=== PATIENT | male | born 1940 | race Caucasian/White ===

== ENCOUNTER → 2024-09-22 13:21 | Outpatient (CLI) | payer MEDICARE, OTHER, SELFPAY | PROVIDERS: PCP Student in an Organized Health Care Education/Training Program; Visit Provider Urology | DX: N40.1 Benign prostatic hyperplasia with lower urinary tract symptoms (principal); N13.8 Other obstructive and reflux uropathy; R97.20 Elevated prostate specific antigen [PSA]; Z87.898 Personal history of other specified conditions | CPT/HCPCS: 81002; 87086; 99214 ==

== ENCOUNTER 2024-10-11 06:26 | Day surgery (SDC) | payer MEDICARE, OTHER, SELFPAY ==
[2024-10-06 14:49] VITALS: BMI 24.0
[2024-10-11] VITALS (18 sets, daily range): BP systolic 102–171; BP diastolic 63–96; PULSE 48–87; RESP 12–19; TEMP 35.9–37.1; O2SAT 92–98; BMI 24.0
--- NOTE | 2024-10-11 | PATH_ITS ---
[facility] Accession Number: [id number] No. of containers..01 Tissue . 01 Material submitted: . prostate - PROSTATE CHIPS . 01 Diagnosis: PROSTATE CHIPS (WEIGHT 9 GRAMS): Portions of prostate tissue with predominantly stromal hyperplasia with focal glandlular elements. No atypia or malignancy identified. MRV 10/14/2024 1048 Local . 01 Electronically signed: . Missy Jiménez MD, Pathologist NPI- [id number] . 01 Gross description: . Received in formalin with two patient identifiers and prostate chips, are multiple wells soft tissue fragments admixed with a moderate amount of hemorrhagic material weighing 9 grams, aggregating to 6.2 x 4.1 x 1.6 cm. Submitted entirely in A1-A5. ([id number]) /MRV 10/12/2024 1910 Local . 01 Pathologist provided ICD-10: N40.1 . 01 CPT . 242443 Specimen Comment: A courtesy copy of this report has been sent to [facility] Performed at: [address] [address], [place], [place] [id number] MD Mitul Castañeda MD Phone: [phone]
[2024-10-11] MEDS: ACETAMINOPHEN 325 MG TABLET 650 MG PO (07:10)
[2024-10-11] MEDS: LACTATED RINGERS 1,000 ML 42 ML IV (07:10)
--- NOTE | 2024-10-11 07:34 | PM.PREOP ---
Pre-operative Note COVID-19 COVID-19 status: Not tested Interval Note History & Physical reviewed/Exam performed by Physician: Yes Changes to H&P: No
[2024-10-11] MEDS: CEFAZOLIN 2 GM/100 ML PREMIX 100 ML IV (07:56)
--- NOTE | 2024-10-11 08:11 | SUR.OPER ---
Lithotomy on padded OR bed, head on pillow, arms secured on padded arm boards at <90 degrees abduction. Legs secured in padded yellow fins stirrups.
--- NOTE | 2024-10-11 09:48 | P.OP_ITS ---
Procedure & Clinicians Procedure: Cystoscopy Aquablation Same procedure as scheduled: Yes Indications: 83 y/o M w/ BPH and bothersome LUTS who was noted to have trilobar hypertrophy and a 54 cc gland on his cystoscopy/TRUS of his prostate as part of his evaluation prior to Aquablation. He is not happy with his urinary habits on Tamsulosin and Finasteride and strongly desires to proceed forward with an Aquablation procedure. Surgeon: Omar English Click Yes if Unassisted: Yes Anesthesia Type: General Operative Notes Findings: Trilobar hypertrophy, 54g prostate gland, grade III trabeculations throughout his bladder Specimen(s): other (prostate chips) Applied: catheter Estimated Blood Loss (mL): 50 Blood products transfused: none Procedure in detail: After informed consent was obtained, the patient was identified brought to the operating room where he was placed in his supine position on the table.? Once there anesthesia was induced and maintained.? Ensuring an adequate level of anesthesia the patient was transitioned to the lithotomy position where after time-out he was prepped.? After prepping, ensuring an adequate level of anesthesia, administration IV antibiotics and time-out 60 cc of ultrasound gel was instilled within the rectum and the ultrasound probe which had been attached to the TRUS stepper which was attached to the TRUS stepper articulating arm which was secured to the bed was advanced into the rectum under direct vision via the ultrasound.? The ultrasound probe was then aligned and confirmation made that the prostate was centered and aligned in both the sagittal and transverse views.? The bladder neck, verumontanum, central and transitional zones were identified.? With the ultrasound in place and adjusted the patient was then draped in a sterile fashion. With the patient draped the 24 [place] aqua beam handpiece was then inserted through the urethra and advanced into the bladder.? Cystoscopy was then performed and no concerning bladder mass or lesions were noted.? Bilateral ureteral orifices were noted to be orthotopic in nature.? As the cystoscope was advanced the level of the sphincter, verumontanum, bladder neck were all i dentified via ultrasound and under direct vision.? The aqua beam hand place was then secured to the handpiece articulating arm which had been secured to the bed.? The Aquablation handpiece and TRUS probe were confirmed to be parallel and colinear.? Confirmation was then made that the aqua beam handpiece and nozzle was centered and anterior to the bladder neck. ?The cystoscope was then retracted under direct vision in the sphincter and verumontanum were identified.? The tip of the cystoscope was then placed proximal to the external sphincter.? Compression was applied with the TRUS probe to the prostate.? The alignment of the TRUS probe and aqua beam handpiece was once again confirmed.? Horizontal alignment of the handpiece water jet was then performed.? With these adjustments made, the treatment zones were then planned using real-time ultrasound.? In the largest transverse view of the prostate the depth and radial angles were determined and set again in the transverse view of the prostate.? In the longitudinal and sagittal view the Aquablation nozzle was identified and its position registered with the software and robot.? The treatment contours were then determined and adjusted to reflect the intended margins of resection.? Following our plan confirmation, the Aquablation resection treatment was started.? A 2nd pass was then completed in similar fashion after the 1st pass had been completed.? At this point, the Aqua hand piece was removed from the urethra. The 26Fr resectoscope was then inserted into the urethra and cystoscopy was repeated.? The Elik electromedical service engineer was utilized to evacuate the blood clots from the bladder.? The bladder neck was then resected using the bipolar Gyrus loop.? Bilateral ureteral orifices were again identified and noted to be intact at case end.? Hemostasis was obtained and noted to be excellent at case end.? The resectoscope was then removed and a 24Fr Landy 3-way hematuria catheter was inserted through the urethra and into the bladder.? 45cc of sterile water was utilized for balloon insufflation.? Efflux was noted to be clear at case end.? Anesthesia was reversed, he was extubated in the OR and transferred to the PACU in stable condition for recovery. Complications: none Post-operative Condition: stable Disposition: PACU Plan for aftercare: Will continue to run continuous bladder irrigation for a few hours while in the PACU. Discharge home vs observation overnight will be determined based upon CBI results.
--- NOTE | 2024-10-11 11:26 | SUR.PHASEII ---
1115 - Cont's to rest quietly and denies pain. [place] Real tubing drainage remains light pink-tinged, flows easily.
--- NOTE | 2024-10-11 12:03 | SUR.PHASEII ---
1145 - Dr English at bedside and turns off irrigation. Awaiting 's arrival to discuss plan.
--- NOTE | 2024-10-11 16:38 | PC.NURSE ---
Patient arrived to room 207 this afternoon. VSS, afebrile on RA. CBI running fruit punch to strawberry lemonade color. He denies pain. He tolerates po intake well w/o n/v. at bedside supportive. Admission assessment completed, SCD's placed, bed alarm, post op VS, encouarged IS use, continuous monitoring.
[2024-10-11] MEDS: SOTALOL 80 MG TABLET 40 MG PO (20:02)
[2024-10-11] MEDS: MELATONIN 3 MG TABLET PO (20:02)
[2024-10-11] MEDS: MELATONIN 3 MG TABLET 9 MG PO (21:03)
--- NOTE | 2024-10-12 06:44 | PC.NURSE ---
Irrigation stopped/clamp and blue plug applied.
[2024-10-12 07:00] VITALS: BP 136/72; PULSE 60; RESP 18; TEMP 36.8; O2SAT 97
[2024-10-12 07:03] LABS: Add Manual Diff / Slide Review NO; Basophils Absolute Auto 0 /uL (0-100); Basophils Percent Auto 0.2 % (0-2); Eosinophils Absolute Auto 0 /uL (0-450); Eosinophils Percent Auto 0.1 % (2-4); Lymphocytes Absolute Auto 1500 /uL (1100-4500); Mean Corpuscular HGB Conc 34.3 % (30-36); Mean Corpuscular Hemoglobin 30.9 PG (26-34); Mean Corpuscular Volume 90.3 fL (80-100); Monocytes Absolute Auto 800 /uL (0-900); Monocytes Percent Auto 6.3 % (3-14); Neutrophils Absolute Auto 10100 /uL (1500-7000); Neutrophils Percent Auto 81.4 % (50-75); Platelet Count 197 X10^3/uL (150-400); Red Blood Cell Count 4.21 X10^6/uL (4.5-5.9); Red Cell Distribution Width 14.5 % (11.6-14.8); White Blood Cell Count 12.4 X10^3/uL (4.5-11.0)
--- NOTE | 2024-10-12 08:05 | P.PN_ITS ---
Subjective Subjective Date Patient Seen: 10/12/24 Time Patient Seen: 08:05 Interval history: 83 y/o M w/ BPH and bothersome LUTS who was noted to have trilobar hypertrophy and a 54 cc gland on his cystoscopy/TRUS of his prostate as part of his evaluation prior to Aquablation. He is not happy with his urinary habits on Tamsulosin and Finasteride and strongly desires to proceed forward with an Aquablation procedure. He is now POD 1 and tolerated the aforementioned procedure without any complications and had an uneventful night in the hospital.? He was tolerating a regular diet without nausea or vomiting and his pain remained well controlled.? His CBI was discontinued this AM and he was able to ambulate without issues.? He is eager to have his catheter removed. Exam Vital Signs (past 8 hours): Oxygen Delivery Method Room Air Oxygen Flow Rate 0 Narrative Exam Narrative: GEN:? Alert and oriented X3.? No acute distress.? Well-nourished. EYES:? PERRLA, EOMI. HENT:? Moist mucus membranes, no scleral icterus, normal neck ROM. RESP:? Unlabored breathing, equal rise and fall of chest bilaterally, no cyanosis appreciated. CV:? No peripheral edema, unremarkable heart rate. ABD:? Soft, non-tender, non-distended, no palpable masses. :? Wheeler catheter secured and draining light pink urine without clots. EXT:? No edema, clubbing or cyanosis. SKIN:? No rashes or lesions. NEURO:? No focal neurologic deficits, CN II-XII grossly intact. PSYCH:? Cooperative, appropriate mood and affect. Objective Labs 10/12/24 06:30 Labs: Laboratory Results - last 24 hr 10/12/24 06:30 WBC 12.4 H RBC 4.21 L Hgb 13.0 L Hct 38.0 L MCV 90.3 MCH 30.9 MCHC 34.3 RDW 14.5 Plt Count 197 Neut % (Auto) 81.4 H Lymph % (Auto) 12.0 L [place] % (Auto) 6.3 Eos % (Auto) 0.1 L Baso % (Auto) 0.2 Neut # (Auto) 28638 H Lymph # (Auto) 1500 [place] # (Auto) 800 Eos # (Auto) 0 Baso # (Auto) 0 PFSH Medical History History of elevated PSA BPH w urinary obs/LUTS Elevated PSA Hypertension Male erectile dysfunction Enlarged prostate with lower urinary tract symptoms (LUTS) Elevated PSA Social History household members: spouse Smoking Status: Never smoker alcohol intake: current Assessment & Plan Assessment and plan (1) BPH w urinary obs/LUTS: Status: Acute Plan: 83 y/o M w/ BPH and bothersome LUTS who was noted to have trilobar hypertrophy and a 54 cc gland on his cystoscopy/TRUS of his prostate as part of his evaluation prior to Aquablation. He is not happy with his urinary habits on Tamsulosin and Finasteride and strongly desires to proceed forward with an Aquablation procedure. He is POD 1 and is recovering as expected.? His wheeler catheter was removed this AM. - Will continue to hydrate well - Will contact the nursing team every time that he urinates so that they can record his UOP and his PVR - Will check on him around lunch, should he be adequately emptying his bladder and his urine remains relatively clear will discharge home. Time-Based Coding :: [TOTAL MINUTES] spent with patient and on the chart (including review of chart, obtaining history, exam, reviewing outside data, placing orders, documenting exam and treatment plan, and counseling patient) on [DATE]. Quality VTE Deep Vein Thrombosis/Pulmonary Embolism Present on Admission: No IH PROFEE Charge codes Subsequent inpatient/observation care: 19139
[2024-10-12] MEDS: SOTALOL 80 MG TABLET 40 MG PO (08:32)
--- NOTE | 2024-10-12 13:41 | CM.DANOTE ---
Initial DCP Assessment Visit Note Reviewed EMR and team rounds for status updates. Met with pt at bedside to introduce self and role, pt was found to be sitting upright in the recliner, alert/oriented, in no apparent distress. Pt resides independently in his own home with his spouse in Friday. His will transport him home once he's medically cleared for d/c, likely later this afternoon if he is urinating adequately, otherwise on 10/13. Payor: Medicare Attending: Dr. English Pt is a 83 year-old M post-op day 1 from an Aquablation procedure. He has a hx of benign prostatic hyperplasia with lower urinary tract symptoms, and was assessed as a good candidate for this option at this time. He denies any CM assistance or resource needs at this time, although he may end up needing a Medical Priority Boarding [place] if they are unable to obtain a reservation at d/c. Will continue to monitor for any further evolving needs. Discharge Planning/Care Management CM Discharge Assessment Start: 10/12/24 13:35 Freq: Status: Active Protocol: Document 10/12/24 13:35 DPL (Rec: 10/12/24 13:41 DPL [id number]) Discharge Planning Assessment Assigned Transplant Nurse Practitioner [place] Mer[place] Advance Directives? No History Provided By Patient,Medical Record Has Patient been admitted in last 30 No days? Prior Living Arrangements House Household Members spouse Type of transporation used prior to Drives own vehicle admit Independent with ADL's Yes Is patient alert and oriented? Yes Comment N/A Caregiver for Another No Comment N/A Comment OP Urology f/u Barriers to Discharge No Discharge Plan Home Transportation Arrangement Spouse Referrals Initiated None needed Whiteboard Updated in Patient Room with Yes name and ext. # of Transplant Nurse Practitioner Review Status In Process Please Provide Date Initial DC 10/12/24 Assessment Was Performed Pre-Anesthesia Assessment Start: 10/06/24 14:49 Freq: Status: Active Protocol: Document 10/06/24 14:49 LB (Rec: 10/06/24 14:57 LB [id number]) Pre-Anesthesia Assessment PAC Comment 10/06/24 Chart review. Patient Information Reviewed Via Chart Review Diagnostic Results Urinalysis Comment 09/22/24 at . Primary Care Provider Anand Rodriguez Seen Specialist in Last 12 Months Yes Specialist Seen Urologist Primary Language Amharic Preferred Language Amharic Operations Vocational Instructor Required No Height 175.26 cm Weight 73.936 kg Body Mass Index (BMI) 24.0 Principal Research Economist No Smoking Status Never smoker Patient is completely paralyzed or No completely immobile Is patient on oxygen? No Hx Sleep Apnea No Currently Taking a Beta Ronaldo Yes: Sotalol 80mg BID. Anti-Coagulant Therapy No Cardiac Testing No Hx Pacemaker/ICD No Cardiac Clearance Received Not Applicable Bladder Pattern Frequency,Hesitancy,Nocturia Diabetes No Marital Status Lives With spouse Patient Discharge Plan Description Return Home Emergency Contact Name Neisha Daniels - Emergency Contact
--- NOTE | 2024-10-12 16:47 | PC.NURSE ---
Patient is A&OX4, VSS, afebrile. He has wheeler dc'd about a.m. Patient is ambulating in the halls and drinking copious intake this a.m. He showers and is able to void. PVR's documented and the initial PVR was 250 with and output of 250. MD English arrived to check on patient during lunch, and planned to re evaluate this afternoon after continue checking PVR after voiding. The next consecutive voids PVR<60 and Patient continues to do well, and MD cleared for discharge this afternoon. He verbalizes understanding of discharge medications, activity, recommendations and follow up in x6 weeks. He is escorted to main entrance for discharge home with at 1555 in private vehicle to ferry back to [facility].
== END 2024-10-12 16:00 | disposition home or self-care (01) ==
LOC: OR 06:28 → AC 06:29
PROVIDERS: PCP Student in an Organized Health Care Education/Training Program; Referring Provider Urology; Visit Provider Urology
PROC: 0VT08ZZ Resection of Prostate, Via Natural or Artificial Opening Endoscopic (ICD-10-PCS; CPT 0421T; principal; 2024-10-11 07:45)
DX: N40.1 Benign prostatic hyperplasia with lower urinary tract symptoms (principal); N13.8 Other obstructive and reflux uropathy
CPT/HCPCS: 0421T; 36415; 85025; C2596; J0330; J0690; J1100; J1171; J1885; J2405; J2704; J3010

== ENCOUNTER → 2024-11-18 15:47 | Outpatient (CLI) | payer MEDICARE, OTHER, SELFPAY ==
[2024-10-11 14:36] VITALS: BMI 24.0
== END ==
PROVIDERS: PCP Student in an Organized Health Care Education/Training Program; Visit Provider Urology
DX: N40.1 Benign prostatic hyperplasia with lower urinary tract symptoms (principal); N13.8 Other obstructive and reflux uropathy; Z87.898 Personal history of other specified conditions
CPT/HCPCS: 87086

== ENCOUNTER → 2025-03-18 10:04 | Outpatient (CLI) | payer MEDICARE, OTHER, SELFPAY ==
[2024-10-11 14:36] VITALS: BMI 24.0
--- NOTE | 2025-03-18 10:06 | DI.NM.S_ITS ---
PROCEDURE: NM GINA PERF SPECT REST & STR Rest and exercise myocardial perfusion SPECT with gated imaging and ejection fraction RADIOPHARMACEUTICAL: 11.1 mCi Tc-99m sestamibi IV at rest and 26 mCi Tc-99m sestamibi IV at peak exercise. A 1 day-protocol was performed. INDICATIONS: MIXED HYPERLIPDEMIA/PVC/HTN/ANEMIA/SOB/CAD PQRS ATTESTATIONS: Measure 322 - Is this imaging test primarily performed on a low-risk surgery patient for preoperative evaluation within 30 days preceding their low-risk non-cardiac surgery? Low-risk surgery is defined as cardiac or myocardial infarction less than 1%, including (but not limited to) endoscopic procedures, superficial procedures, cataract surgery, and excisional breast surgery: Answer: No Measure 323 - Is this imaging test performed primarily for the monitoring of an asymptomatic patient who had percutaneous coronary intervention on the visit date or within 2 years of the visit date? Answer: No Measure 324 - Is this imaging test performed primarily for the initial detection and risk assessment on an asymptomatic, low coronary heart disease patient? Low CHD risk definition = clinicians should consider the maximum number of available patient factors used to estimate risk based on [place] (ATP III criteria), typically age, gender, diabetes, smoking status, and use of blood pressure medication, and integrate age appropriate estimates for missing elements, such as LDL or standard blood pressure. Answer: No TECHNIQUE: Radiopharmaceutical was injected at peak stress test, and also at rest. SPECT images were obtained. SPECT myocardial perfusion images were displayed in short axis, horizontal long axis, and vertical long axis views. Gated images were reviewed using AutoQUANT software. COMPARISON: None. CARDIAC STRESS: A standard [place] treadmill exercise tolerance test was performed by the patient under the supervision of an attending staff. The patient exercised for 9 minutes and 1 seconds; functional aerobic impairment (LEIZABETH) is -80%. Hemodynamic data: There is normal blood pressure and heart rate response to exercise stress. Patient achieved 84% of maximum predicted heart rate at peak exercise. Patient took 40 mg of sotalol prior to stress test. Symptoms: Patient denied chest pain during exercise. EKG: Nondiagnostic due to significant baseline artifact noted during the stress phase. FINDINGS: Raw data: There is good myocardial labeling by radiotracer. No significant motion artifacts. Xfvv-jz-njibp ratio is 0.23 (normal is less than 0.38 for sestamibi tracer, and less than 0.50 for thallium tracer). Left ventricle function: Gated images demonstrate normal left ventricle wall thickening. No segmental wall motion abnormality. No transient ischemic dilation; TID is 0.89 (normal less than 1.3). The left ventricle resting end-diastolic volume is 97 mL. Left ventricle stress ejection fraction is 65%; normal values are above 45%. Myocardial perfusion: There is normal distribution of activity in the left and right ventricular myocardium. No fixed or reversible perfusion defects. Increased gut uptake noted. IMPRESSION: 1. Nondiagnostic exercise myocardial perfusion scan for ischemia due to inability to reach target heart rate. No infarction noted. 2. Excellent exercise tolerance Dictated by: Kendall Ray M.D. on 03/18/2025 at 16:51 Approved by: Kendall Ray M.D. on 03/18/2025 at 16:55
== END ==
PROVIDERS: PCP Student in an Organized Health Care Education/Training Program; Referring Provider Internal Medicine Cardiovascular Disease; Visit Provider Internal Medicine Cardiovascular Disease
DX: E78.2 Mixed hyperlipidemia (principal); I49.3 Ventricular premature depolarization; I10 Essential (primary) hypertension; R06.02 Shortness of breath; D64.9 Anemia, unspecified; I25.10 Atherosclerotic heart disease of native coronary artery without angina pectoris
CPT/HCPCS: 78452; 93017; A9502